=== PATIENT | male | born 1935 | race Caucasian/White ===

== ENCOUNTER → 2017-06-15 | Outpatient (CLI) | payer MEDICARE ==
[~2017-06-15] MED LIST: ALLE10TA PO; ALLO100T PO; ASPI81TA11 PO; GLIP5TAB8 PO; LISI-515 PO; LOVA20TA PO; MELO-1 PO; METF1000 PO
[2017-06-15 13:08] LABS: AUTOMATED NEUTROPHIL # 6.2 TH/MM3 (1.8-7.7); BASOPHIL # 0.1 TH/MM3 (0-0.2); BASOPHIL % 0.8 % (0.0-2.0); EOSINOPHIL # 0.3 TH/MM3 (0-0.4); EOSINOPHIL % 3.3 % (0.0-4.0); HEMATOCRIT 41.4 % (39.0-51.0); HEMO FLAGS DIFF FINAL; LYMPH % 22.4 % (9.0-44.0); LYMPHOCYTE # 2.1 TH/MM3 (1.0-4.8); MEAN CELL VOLUME 88.7 FL (80.0-100.0); MEAN CORPUSCULAR HEMOGLOBIN 29.6 PG (27.0-34.0); MEAN CORPUSCULAR HGB CONC 33.4 % (32.0-36.0); MONO % 7.4 % (0.0-8.0); NEUT % 66.1 % (16.0-70.0); PLATELET COUNT 281 TH/MM3 (150-450); RED BLOOD COUNT 4.66 MIL/MM3 (4.50-5.90); WHITE BLOOD COUNT 9.4 TH/MM3 (4.0-11.0)
[2017-06-15 13:11] LABS: BLOOD, URINE NEG (NEG); GLUCOSE,URINE NEG (NEG); KETONE, URINE NEG (NEG); NITRITE,URINE NEG (NEG); SQUAMOUS EPITHELIAL CELL URINE <1 /hpf (0-5); URINE COLOR YELLOW (YELLW/STRAW)
[2017-06-15 13:13] LABS: COMMENT (UR) CULT NOT INDICATED; CULTURE IF INDICATED CULT NOT INDICATED
[2017-06-15 13:22] LABS: APTT (PATIENT) 26.7 SEC (24.3-30.1); PROTHROMBIN TIME - PATIENT 10.5 SEC (9.8-11.6)
[2017-06-15 13:27] LABS: ANION GAP 10 MEQ/L (5-15); BICARBONATE 25.4 MEQ/L (21.0-32.0); BLOOD UREA NITROGEN 9 MG/DL (7-18); CHLORIDE 105 MEQ/L (98-107); GLOMERULAR FILTRATION RATE 85 ML/MIN (>89); POTASSIUM 4.1 MEQ/L (3.5-5.1); SODIUM (NA) 140 MEQ/L (136-145)
--- NOTE | 2017-06-15 14:09 | RADRPT ---
EXAM DATE/TIME: 06/15/2017 13:28 [facility] COMPARISON: No previous studies available for comparison. INDICATIONS : CA right upper lung. MEDICAL HISTORY : Carcinoma, lung. SURGICAL HISTORY : None. ENCOUNTER: Initial ACUITY: 1 day PAIN SCORE: 0/10 LOCATION: Right chest FINDINGS: Consolidative masslike density is present right upper lobe. Left lung is clear. The heart and pulmon cara vascularity are normal. The portion of the bony skeleton visualized is unremarkable. CONCLUSION: Consolidative masslike right upper lobe density as described above. Dane Rucker MD FACR on June 15, 2017 at 14:06 Board Certified Radiologist. This report was verified electronically.
[2017-06-15 15:28] LABS: MRSA PCR NEGATIVE (NEGATIVE); STAPH AUREUS PCR NEGATIVE (NEGATIVE)
[2017-06-15 17:26] LABS: HEMOGLOBIN A1b 1.2 %; HEMOGLOBIN Ao 83.2 %; HEMOGLOBIN LA1C 1.8 %
== END ==
LOC: CPRE 12:04
PROVIDERS: ATTEND Thoracic Surgery (Cardiothoracic Vascular Surgery)
DX: Z01.812 Encounter for preprocedural laboratory examination (principal); C34.91 Malignant neoplasm of unspecified part of right bronchus or lung
CPT/HCPCS: 36415; 71020; 80048; 81001; 83036; 85025; 85610; 85730; 87640; 87641

== ENCOUNTER 2017-06-22 07:30 | Inpatient (IN) | payer MEDICARE ==
[~2017-06-22] VITALS: Ht 185.4 cm; Wt 114.0 kg
[2017-06-29] MEDS ORDERED: HEPARIN SODIUM - SQ 10,000 UNITS/ML VIAL ONE (06:37)
[2017-06-29] MEDS ORDERED: ceFAZolin 2 GM PREMIX 0 ML ONE (06:37)
[2017-06-29] MEDS ORDERED: METOPROLOL TARTRATE 25 MG TAB PO PRN (06:45)
[2017-06-29] MEDS ORDERED: CHLORHEXIDINE GLUCONATE 4% SOLN 120 ML BTL TOPICAL SCH (06:45)
[2017-06-29] MEDS ORDERED: INSULIN HUMAN REGULAR 1,000 UNITS/10 ML VIAL SQ PRN (06:45)
[2017-06-29] MEDS ORDERED: SODIUM CHLORID 0.9% 500 ML IV PRN (06:45)
[2017-06-29] MEDS ORDERED: POVIDONE IODINE 5% (ANTISEPSIS KIT) 4 APPLICATIONS EACH NARE PRN (06:45)
[2017-06-29] MEDS ORDERED: CHLORHEXIDINE GLUCONATE 2 % 1 PACK (2 CLOTHS) TOPICAL PRN (06:45)
[2017-06-29] MEDS ORDERED: NS 20 ML/EXPAREL 20 ML/DEXAMETHASONE 4 MG/MORPHINE 10 MG IRRIGATION ONE ×4 (06:45)
[2017-06-29] MEDS ORDERED: LACTATED RINGER'S 1000 ML IV PRN (06:45)
[2017-06-29] MEDS ORDERED: INSULIN REGULAR 100 UNITS in NS 100 ML IV SCH (06:45)
[2017-06-29] MEDS ORDERED: BUPIVACAINE LIPOSO PF 1.3% INJ 20 ML, DEXAMETHASONE INJ 4 MG, MORPHINE INJ 8 MG in SODI... IRRIGATION ONE (07:00)
[2017-06-29] MEDS ORDERED: CEFAZOLIN 500 MG in NS IRR BTL 500 ML IRRIGATION SCH (07:00)
[2017-06-29] MEDS ORDERED: FAMOTIDINE 20 MG/2 ML VIAL ONE (07:12)
[2017-06-29] MEDS ORDERED: LIDOCAINE HCL 1% 20 ML VIAL ONE (08:06)
[2017-06-29] MEDS ORDERED: EPINEPHrine HCL (1:1000) 1 MG/ML VIAL ONE (08:06)
[2017-06-29] MEDS ORDERED: RESP: ALBUTEROL 2.5 MG/3 ML NEB (PRN) NEB (08:30)
[2017-06-29] MEDS ORDERED: *LABETALOL HCL 100 MG/20 ML VIAL PERIprocedural Use ONLY ONE (08:56)
--- NOTE | 2017-06-29 09:42 | RADRPT ---
EXAM DATE/TIME: 06/29/2017 09:05 [facility] COMPARISON: CHEST PA & LAT, June 15, 2017, 13:28. INDICATIONS : Evaluate for pneumothorax. MEDICAL HISTORY : Carcinoma, lung. SURGICAL HISTORY : None. ENCOUNTER: Initial ACUITY: 1 day PAIN SCORE: 0/10 LOCATION: Bilateral chest FINDINGS: There is no pneumothorax. Consolidative changes in the right upper lobe stable in the interval. The lungs are clear. The heart is minimally enlarged. The pulmonary vascularity is normal. There is n o evidence for infiltrate or failure. The portion of the bony skeleton visualized is unremarkable. CONCLUSION: Negative for pneumothorax. Dane Rucker MD FACR on June 29, 2017 at 9:39 Board Certified Radiologist. This report was verified electronically.
[2017-06-29 10:18] VITALS: BP 137/62; PULSE 62; RESP 18; TEMP 97.5; O2SAT 96
[2017-06-29] MEDS ORDERED: PROPOFOL 200 MG/20 ML AMP IV ONE (11:47)
[2017-06-29] MEDS ORDERED: PHENYLEPHRINE HCL 10 MG/ML VIAL IV ONE (11:47)
[2017-06-29] MEDS ORDERED: MIDAZOLAM HCL 2 MG/2 ML VIAL IV ONE (11:47)
[2017-06-29] MEDS ORDERED: NEOSTIGMINE 3 MG/3 ML SYR IV ONE (11:47)
[2017-06-29] MEDS ORDERED: ONDANSETRON HCL 4 MG/2 ML VIAL IV PUSH ONE (11:47)
[2017-06-29] MEDS ORDERED: ePHEDrine/NS 25 MG/5 ML SYR IV ONE (11:47)
--- NOTE | 2017-07-02 09:22 | MP ---
cc: ALLISON ALEXANDER MD, SOHIT K. MD DATE OF SURGERY 06/29/2017 PREOPERATIVE DIAGNOSES 1. Right upper lobe [id number]-[id number] lung cancer. 2. COPD. POSTOPERATIVE DIAGNOSES 1. Right upper lobe uoj-[id number]-lnsk lung cancer extending into the right main stem bronchus. 2. COPD. SURGICAL PROCEDURES Fiberoptic bronchoscopy with brushings. SURGEON Dr. Bright [employer]IP[employer]ARDS Barron Solorzano ANESTHESIA General endotracheal. SPIRAL [employer]ING WINDER JAGRUTI Handley MD COUNTS Needle, sponge and instrument counts correct. DRAINS None. COMPLICATION None. INDICATIONS Mr. Austin is a 81-year-old gentleman with a large right upper lobe lung cancer extending to the right suprahilar region presenting for surgical resection. PROCEDURE The patient was brought to the operating room and placed supine on the OR table. Following induction of adequate general endotracheal anesthesia and placement of appropriate monitoring devices, fiberoptic bronchoscopy was performed. This revealed a large exophytic mass in the ostium of the right upper lobe bronchus extending into the mainstem bronchus. Brushings of this was obtained and sent for cytologic analysis. The mass appeared to be completely occluding the upper lobe bronchus. Given the above findings, it was determined that a right upper lobectomy would not suffice in resecting the tumor with tumor-free margins on the bronchus. Additionally, because of the extension to the mainstem bronchus, a sleeve lobectomy would not work as well. Unfortunately his pulmonary function as well as his physical condition did not allow for us to proceed with a pneumonectomy and therefore the plan was made to stop the procedure here. Strict hemostasis was assured. The tracheobronchial tree was cleared out of mucinous secretions and the patient was awakened from general anesthesia and transferred to the recovery room in stable condition. Lev HARPER/MARCEL /3:44 PM /9:13 AM
== END 2017-06-29 10:13 | disposition home or self-care (01) | DRG 168 ==
LOC: EDUNIT# 07:30 → HSDI 06-29 05:11
PROVIDERS: ADMIT Thoracic Surgery (Cardiothoracic Vascular Surgery); ATTEND Thoracic Surgery (Cardiothoracic Vascular Surgery)
PROC: 0BBC8ZX Excision of Right Upper Lung Lobe, Via Natural or Artificial Opening Endoscopic, Diagnostic (ICD-10-PCS; principal; 2017-06-29 07:22)
DX: C34.11 Malignant neoplasm of upper lobe, right bronchus or lung (principal); J44.9 Chronic obstructive pulmonary disease, unspecified
CPT/HCPCS: 71010; 86850; 86900; 86901; 86920; 88112; C9290; J0171; J0690; J1100; J1644; J2250; J2270; J2370; J2405; J2710; J3010; J7120

== ENCOUNTER → 2017-07-12 | Day surgery (SDC) | payer MEDICARE ==
--- NOTE | 2017-07-11 19:26 | MH ---
cc: ANA LEGER DATE OF ADMISSION 07/12/2017 HISTORY A 81-year-old gentleman with a left-sided neck mass, malignant for removal. PAST MEDICAL HISTORY 1. Notable for lung cancer. 2. Hypertension. MEDICATIONS Include antihypertensive. ALLERGIES NO KNOWN DRUG ALLERGIES. PHYSICAL EXAMINATION GENERAL: Well-appearing patient, no acute distress noted. HEENT: Exam reveals left-sided anterior to the submandibular gland neck mass approximately 1.5 cm. LUNGS: Clear. HEART: Regular rate and rhythm. ABDOMEN: Soft and nontender. EXTREMITIES: Without cyanosis, clubbing. NEUROLOGIC: Nonfocal neurologic exam. IMPRESSION A patient with malignant neck mass for excision. Instructed in the method of surgery and possible complications to include anesthetic complications, cardiac difficulty, pulmonary difficulty, stroke, or even . Surgical complications including marginal mandibular nerve paralysis, bleeding, infection, recurrent neck mass. The patient appeared to agree, accept and understand above-mentioned risks and benefits. In addition no guarantees regarding outcome were given. We will therefore proceed with surgery. MD PEPE Moreno/KEN /6:40 PM /7:17 PM
[~2017-07-12] VITALS: Ht 185.4 cm; Wt 114.5 kg
[~2017-07-12] MED LIST changes: +*morphine SULFATE 8 MG/ML PERIprocedure ONLY ONE; +ACETAMINOPHEN/HYDROcodone 325 MG/7.5 MG TAB PO PRN; +BUPIVACAINE/EPINEPHRINE 0.25% 50 ML VIAL ONE; +CHLORHEXIDINE GLUCONATE 2 % 1 PACK (2 CLOTHS) TOPICAL PRN; +DEXAMETHASONE SOD PHOS 4 MG/ML VIAL ONE; +DO NOT ADM ANY ANTICOAGULANT DRUGS PRN; +ESMOLOL HCL 100 MG/10 ML VIAL IV ONE; +FAMOTIDINE 20 MG/2 ML VIAL ONE; +GLYCOPYRROLATE 1 MG/5 ML SYRINGE IV PUSH ONE; +HEPARIN SODIUM - IV 10,000 UNITS/10 ML VIAL ONE; +HEPARIN SODIUM - SQ 10,000 UNITS/ML VIAL ONE; +INSULIN HUMAN REGULAR 1,000 UNITS/10 ML VIAL SQ PRN; +LABETALOL HCL 100 MG/20 ML VIAL IV ONE; +LACTATED RINGER'S 1000 ML IV PRN; +LIDOCAINE 2%/EPINEPHrine PF 1:200,000 20ML SDV ONE; +LIDOCAINE HCL 1% PF 5 ML AMPULE OTHER ONE; +METOPROLOL TARTRATE 25 MG TAB PO PRN; +MIDAZOLAM HCL 2 MG/2 ML VIAL IV ONE; +MORPHINE SULFATE 4 MG/ML INJ IV PRN; +NEOSTIGMINE 3 MG/3 ML SYR IV ONE; +ONDANSETRON HCL 4 MG/2 ML VIAL IV PUSH ONE; +ONDANSETRON HCL 4 MG/2 ML VIAL IV PUSH PRN; +POVIDONE IODINE 5% (ANTISEPSIS KIT) 4 APPLICATIONS EACH NARE PRN; +PROPOFOL 200 MG/20 ML AMP IV ONE; +ROCURONIUM INJ 50 MG/5 ML SYRINGE IV PUSH ONE; +SODIUM CHLORID 0.9% 500 ML IV PRN; +ceFAZolin 2 GM PREMIX 50 ML IV SCH
--- NOTE | 2017-07-12 11:18 | RADRPT ---
EXAM DATE/TIME: 07/12/2017 10:07 [facility] COMPARISON: CHEST SINGLE AP, June 29, 2017, 9:05. INDICATIONS : S/p port placement. MEDICAL HISTORY : Carcinoma, lung. SURGICAL HISTORY : None. ENCOUNTER: Initial ACUITY: 1 day PAIN SCORE: 0/10 LOCATION: Bilateral chest FINDINGS: Interval placement of left sided subclavian Ncpads-n-Nzck with tip near the atriocaval junction. Pers istent right upper lobe airspace consolidation. Patchy airspace disease in the left lung base. No sig nificant pneumothorax. Cardiomediastinal contours are within normal limits. Remainder of exam is unch anged. CONCLUSION: 1. Left subclavian Uiqxlb-h-Nxdr with tip near the atriocaval junction. No significant pneumothorax. 2. Stable right upper lobe airspace consolidation. 3. Minimal left lower lobe airspace disease, likely atelectasis. Thony Arenas MD on July 12, 2017 at 11:15 Board Certified Radiologist. This report was verified electronically.
[2017-07-12 11:45] VITALS: BP 131/74; PULSE 72; RESP 20; TEMP 97.7; O2SAT 94
--- NOTE | 2017-07-12 12:22 | MP ---
cc: ANA LEGER DATE OF SURGERY 07/12/2017 PREOPERATIVE DIAGNOSIS Neck mass. PROCEDURE Excision malignant neck mass. ANESTHESIA General anesthesia. ESTIMATED BLOOD LOSS Minimal. COMPLICATIONS No complications. OPERATING SURGEON Dr. Leger OPERATION FOLLOWS Prepped and draped in the usual fashion. The incision was made in the submandibular region anterior to the submandibular gland on the left side. Once this was achieved down through the skin and subcutaneous tissue, a subplatysmal flap was elevated up to the mandible on the superior side of the incision and the inferior side down to the level of the hyoid. 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 This lymph node was just anterior to the submandibular gland and just superficial to the digastric muscle on the left side. Once this was completely removed, the wound was closed with interrupted Monocryl stitch and a running stitch on the skin. The patient tolerated the procedure well. MD PEPE Moreno/MARCEL /9:39 AM /12:15 PM
--- NOTE | 2017-07-13 07:56 | MP ---
cc: OG DE JESUS MD DATE OF SURGERY 07/12/2017 PREOPERATIVE DIAGNOSIS Lung cancer advanced disease. POSTOPERATIVE DIAGNOSIS Lung cancer advanced disease, need for venous port access for chemotherapy. PROCEDURE PERFORMED Left subclavian port placement under direct fluoroscopy. SURGEON Dr. Og De Jesus LOADING DOCK HELPER See OR sheet. ANESTHESIA GETA IV FLUIDS See anesthesia sheet. ESTIMATED BLOOD LOSS 10 cc DRAINS None COMPLICATIONS None FINDINGS Good flush with return of port. WOUND CLASSIFICATION Clean INDICATION The patient is a 81-year-old male with a diagnosis of advanced lung cancer. He is to undergo incisional biopsy of the neck and also in need of a vascular venous port access. Surgery was consulted for this. Head and neck surgery performed. Incisional neck biopsy and port was proceeded following this. PROCEDURE IN DETAIL The patient had already been intubated, placed in the supine position and after undergoing the neck mass biopsy, the patient was reprepped and draped and a time-out was redone in order to commence the port placement. After agreement and time out, attention was directed to the left chest. The important anatomical details were identified including the sternal notch and clavicle. The Halsted ligament was palpated and identified coming off the clavicle approximately two-thirds distal to the clavicle and the end inferiorly was noted as a point of entry. Local anesthetic injected at this prior. The patient was placed in Trendelenburg and the introducer needle was advanced on first attempt noting to get dark red blood aspirated. The wire was advanced through the needle. This was done in a Seldinger technique. Fluoroscopy was used to correctly visualized the wire and confirm its placement in the cava. After removal of the needle, the wire was left in place. A stab neisha incision was done over the wire. Port placement pocket was identified just 2-1/2 cm distal to this. A local anesthetic was injected and a horizontal incision approximately 3 cm and was made with a 15 blade. Further dissection done with electro Bovie cautery. This was done in order to free up a pocket to snugly fit the power port. Next, the introducer sheath was cannulated over the wire and the wire and contents removed. The catheter was directed through the sheath down under full fluoroscopy and noted to continue above the atriocaval junction. Once the appropriate size of the wire was obtained, the wire was cut approximately at the 22 cm claudine. This was then hooked to the crimp setter and tunneled under the skin to the port pocket entry. The tubing was then connected to the port itself and stay sutures were placed including 2-0 Prolene to secure the port onto the chest wall. Hemostasis was noted and obtained with electro Bovie cautery to the port pocket. Next, again fluoroscopy used to confirm the presence of the port sitting snugly in place in appropriate length without any kinking in the tubing. The port was then aspirated and flushed with heparinized saline and again noted to flow freely using a Gray needle. The skin was then closed first in a subcuticular layer with 3-0 Vicryl following 4-0 Monocryl used to close the skin. Sterile dressings were placed including Mastisol, Steri-Strips and Tegaderm. All lap and instrument counts were correct at the end of the case. There were no complications. The patient was then transported to PACU in stable condition. A chest x-ray is pending to confirm port placement. MD MARYBEL Sylvester/KARAN /7:29 PM /7:40 AM [facility]
== END | disposition home or self-care (01) ==
LOC: HSDC 05:53
PROVIDERS: ATTEND Specialist
DX: C96.9 Malignant neoplasm of lymphoid, hematopoietic and related tissue, unspecified (principal); C34.90 Malignant neoplasm of unspecified part of unspecified bronchus or lung; I10 Essential (primary) hypertension; E78.5 Hyperlipidemia, unspecified; J44.9 Chronic obstructive pulmonary disease, unspecified; E11.9 Type 2 diabetes mellitus without complications; E66.9 Obesity, unspecified; Z68.33 Body mass index [BMI] 33.0-33.9, adult; Z79.84 Long term (current) use of oral hypoglycemic drugs; Z79.82 Long term (current) use of aspirin; Z79.899 Other long term (current) drug therapy
CPT/HCPCS: 71010; 77001; 88305; 88341; 88342; C1788; J0690; J1100; J1644; J2250; J2270; J2405; J2710; J3010; J7120